=== PATIENT | female | born 1980 | race Caucasian/White ===

== ENCOUNTER 2020-01-27 15:34 | Emergency (ER) | payer SELFPAY ==
[~2020-01-27] VITALS: Ht 154.9 cm; Wt 117.9 kg
[2020-01-27 16:02] VITALS: BP 116/84
== END 2020-01-27 16:06 | disposition home or self-care (01) ==
LOC: ER 15:34
DX: B34.9 Viral infection, unspecified (principal); R07.9 Chest pain, unspecified
CPT/HCPCS: 93005; 99283